=== PATIENT | female | born 1960 | race Caucasian/White ===

== ENCOUNTER → 2016-08-18 | Outpatient (CLI) | payer BC ==
--- NOTE | 2016-08-19 12:36 | MAMMOGRAPHY REPORT ---
BILATERAL DIGITAL SCREENING MAMMOGRAM TOMOSYNTHESIS WITH CAD: 08/18/2016 CLINICAL HISTORY: Routine screening examination. TECHNIQUE: Breast tomosynthesis in addition to standard 2D mammography was performed. Current study was also evaluated with a Computer Aided Detection (CAD) system. COMPARISON: Comparison is made to exams dated: 08/14/2015 mammogram, 08/13/2014 mammogram, 08/09/2013 mammogram, 08/20/2015 mammogram, 07/24/2010 mammogram, and 07/22/2009 mammogram - [facility]ter. BREAST COMPOSITION: The tissue of both breasts is heterogeneously dense, which may obscure small ma sses. FINDINGS: There is stable expected architectural distortion in the 11:00 breast, in the area of prio r benign surgical excisional biopsy. There is a stable dumbbell-shaped metallic biopsy marker in th e upper outer posterior left breast. Scattered punctate microcalcifications most numerous in the [place]um[place] perior right breast are stable comparing to prior exams. There are also numerous bilateral benign c oarse calcifications. No new suspicious mass, architectural distortion or cluster of microcalcifica tions is seen. IMPRESSION: ACR BI-RADS CATEGORY 1: NEGATIVE There is no mammographic evidence of malignancy. A 1 year screening mammogram is recommended. The p atient will receive written notification of the results. Approximately 10% of breast cancers are not detected with mammography. A negative mammographic repor t should not delay biopsy if a clinically suggestive mass is present. Zandra Saldaña M.D. ay/:08/18/2016 17:14:31 [employer] Operator: Vee DALAL(R)(Chaparrita), [facility] letter sent: Normal 1/2 BI-RADS Code: ACR BI-RADS Category 1: Negative
== END | disposition home or self-care (01) ==
LOC: C.MAMM 07:15
PROVIDERS: ATTEND Obstetrics & Gynecology
DX: Z12.31 Encounter for screening mammogram for malignant neoplasm of breast (principal)

== ENCOUNTER → 2017-03-31 | Outpatient (CLI) | payer BC ==
--- NOTE | 2017-03-31 13:38 | MAMMOGRAPHY REPORT ---
UNILATERAL LEFT DIGITAL DIAGNOSTIC MAMMOGRAM TOMOSYNTHESIS WITH CAD AND TARGETED LEFT ULTRASOUND: 04/2017 CLINICAL HISTORY: 56-year-old woman with a history of prior benign left breast stereotactic biopsy an d a surgical excisional biopsy presents with pain in the superior left breast. Family history of bryan ast cancer = mother and sister. TECHNIQUE: Breast tomosynthesis in addition to standard 2D mammography was performed. Current study was also evaluated with a Computer Aided Detection (CAD) system. COMPARISON: Comparison is made to exams dated: 08/18/2016 mammogram, 08/27/2015 mammogram, 08/27/2015 kely reotactic biopsy, 08/20/2015 ultrasound, 08/20/2015 mammogram, and 08/14/2015 mammogram - [facility]. BREAST COMPOSITION: The tissue of the left breast is heterogeneously dense, which may obscure small masses. FINDINGS: A linear scar marker overlies the 12:00 middle one third of the breast, denoting the skin s chedule scar from prior surgical excision. A triangle shaped marker was also placed in the 12:00 mid dle one third of the left breast, denoting the area of pain pointed out by the patient. There is sta ble architectural distortion in the 11:00 middle one third of the left breast, at the site of prior s urgical excision. A stable dumbbell-shaped biopsy marker clip in the upper outer quadrant of the lef t breast from prior benign stereotactic biopsy. There are a few stable benign rim calcifications and groupings of stable punctate microcalcifications. No obvious new mass, unexpected architectural dis tortion, asymmetry or calcifications are seen. Targeted ultrasound was performed in the area of pain pointed out by the patient, in the 11:00 to 12: 00 left breast, 7 cm from the nipple. There is a hypoechoic area of shadowing in the area of pain, w hich probably represents scar tissue although sometimes malignancy can appear similar. Given the str renetta family history of breast cancer and dense breasts, would recommend further evaluation with a silvano st MRI to exclude the possibility of any enhancement in this area. IMPRESSION: ACR BI-RADS CATEGORY 0: INCOMPLETE EVALUATION: NEED ADDITIONAL IMAGING EVALUATION, TARG ETED ULTRASOUND ACR BI-RADS CATEGORY 0: INCOMPLETE EVALUATION: NEED ADDITIONAL IMAGING EVALUATION There is an ill-defined hypoechoic shadowing area in the 11:00 left breast, 7 cm from the nipple on u ltrasound, correlating with the area of pain pointed out by the patient. Although this could represe nt shadowing scar tissue from previous benign surgical excisional biopsy, malignancy can sometimes ap pear similar. Given the personal history of 2 first degree relatives with breast cancer, and dense b reasts, would recommend further evaluation with a contrast-enhanced breast MRI to exclude the possibi lity of any abnormal enhancement or enhancing mass in this area. These results and recommendations were discussed with the patient at the time of the exam. Approximately 10% of breast cancers are not detected with mammography. A negative mammographic report should not delay biopsy if a clinically suggestive mass is present. Zandra Saldaña M.D. ay/:03/31/2017 12:19:46 Agriculture Intern: Vee DALAL(Griselda)(Chaparrita), [facility] letter sent: Addl Imaging 0 BI-RADS Code: ACR BI-RADS Category 0: Incomplete Evaluation: Need Additional Imaging Evaluation Ult rasound BI-RADS: ACR BI-RADS Category 0: Incomplete Evaluation: Need Additional Imaging Evaluation
== END | disposition home or self-care (01) ==
LOC: C.MAMM 10:38
PROVIDERS: ATTEND Physician Assistant
DX: N64.4 Mastodynia (principal); R92.8 Other abnormal and inconclusive findings on diagnostic imaging of breast

== ENCOUNTER → 2017-04-19 | Outpatient (CLI) | payer BC ==
[~2017-04-19] MED LIST: GADAVIST IV PRN
--- NOTE | 2017-04-20 07:25 | MAMMOGRAPHY REPORT ---
BREAST MRI OF BOTH BREASTS : 04/19/2017 CLINICAL HISTORY: 56-year-old woman recently presented with pain in the left breast and was found to have an ill-defined area of shadowing in the left 11:00 left breast thought to represent a remote sonia gical scar. Patient has a strong family history of breast cancer and dense breasts, assess for any a bnormal enhancement or enhancing mass. COMPARISON: Comparison is made to exams dated: 03/31/2017 mammogram, 08/27/2015 mammogram, 08/27/2015 st ereotactic biopsy, 08/20/2015 ultrasound, 08/20/2015 mammogram, and 08/14/2015 mammogram - [facility]. TECHNIQUE: Using a 1.5 Mary magnet and dedicated breast coil, multisequence axial images were obtain ed through the breasts. After uneventful IV administration of 7 mL of Gadavist, dynamic multiphase c ontrast-enhanced axial images, and sagittal postcontrast were obtained. Temporal subtraction axial i mages and 3-D MIP images are provided. Everything was then reviewed on a 3-D workstation, [employer]. FINDINGS: There is minimal background parenchymal enhancement. There is one prominent ovoid enhancin g focus measuring 4 mm in the subareolar left breast (axial page 79/130 and sagittal page 34/128). O ne prominent ovoid enhancing focus is seen in the right breast at approximately 12:30, in the middle one third of the breast measuring 3 mm (axial page 43/1:30 and sagittal page 99/128). Although these foci are most likely within the range of normal background enhancement, given they are the only is c onspicuous focus in each breast, repeat attention at a 6 month follow-up breast MRI is recommended to ensure stability. There is no other suspicious enhancing mass, suspicious non-mass enhancement or s uspicious area of architectural distortion. There is expected architectural distortion in the superi or, middle one third of the left breast approximately 11:00 through 1:00 axes, correlating with the a rchitectural distortion seen mammographically. There is no abnormal enhancement in this area of arch itectural distortion to suggest a suspicious mass. No focal skin thickening or nipple retraction. N o suspicious axillary adenopathy. IMPRESSION: ACR-BI-RADS CATEGORY 3: PROBABLY BENIGN 1. There is no evidence of a suspicious enhancing mass or non-mass enhancement near a prior surgical scar in the superior left breast approximately 11:00 through 1:00 axis. This is compatible with vale ign scar tissue in the area of shadowing seen on ultrasound is also considered benign. 2. A single conspicuous ovoid focus of enhancement in each breast, most likely within the range of n ormal background. However, given the possibility of other foci, a short interval follow-up bilateral breast MRI is recommended to ensure stability in 6 months. The patient will receive written notification of the results. Zandra Saldaña M.D. ay/:04/19/2017 21:21:09 Aircraft Engineer: telecommunication systems designer, [facility] letter sent: Follow Up Recommended 3 BI-RADS Code: ACR-BI-RADS Category 3: Probably Benign
== END | disposition home or self-care (01) ==
LOC: C.MRI 12:43
PROVIDERS: ATTEND Obstetrics & Gynecology
DX: R93.8 Abnormal findings on diagnostic imaging of other specified body structures (principal)

== ENCOUNTER → 2017-08-24 | Outpatient (CLI) | payer BC ==
--- NOTE | 2017-08-26 08:00 | MAMMOGRAPHY REPORT ---
BILATERAL DIGITAL SCREENING MAMMOGRAM TOMOSYNTHESIS WITH CAD: 08/24/2017 CLINICAL HISTORY: Routine screening. Patient has no complaints. TECHNIQUE: Breast tomosynthesis in addition to standard 2D mammography was performed. Current study was also evaluated with a Computer Aided Detection (CAD) system. COMPARISON: Comparison is made to exams dated: 04/19/2017 breast MRI, 03/31/2017 ultrasound, 017 mammogram, 08/18/2016 mammogram, 08/27/2015 mammogram, and 08/27/2015 stereotactic biopsy - [facility]. BREAST COMPOSITION: The tissue of both breasts is heterogeneously dense, which may obscure small mas ses. FINDINGS: There possible faint grouped punctate microcalcifications in the 12:00 and retroareolar ri ght breast, for which additional spot magnification views are recommended. There is stable expected architectural distortion in the 12:00 left breast, denoting an area of prior surgery. A linear scar marker overlies the left upper outer quadrant. There are numerous benign ri m calcifications bilaterally, and a stable metallic biopsy marker clip in the upper outer posterior l eft breast. No other suspicious mass, architectural distortion or cluster of microcalcifications is seen. IMPRESSION: ACR BI-RADS CATEGORY 0: INCOMPLETE EVALUATION: NEED ADDITIONAL IMAGING EVALUATION The possible faint grouped microcalcifications 12:00 and retroareolar in the right breast need additi onal evaluation. The patient will be called to schedule an appointment. Approximately 10% of breast cancers are not detected with mammography. A negative mammographic report should not delay biopsy if a clinically suggestive mass is present. Zandra Saldaña M.D. ay/:08/24/2017 17:32:38 [employer] Repairer: Triny Jeffers, [facility] letter sent: Addl Imaging 0 BI-RADS Code: ACR BI-RADS Category 0: Incomplete Evaluation: Need Additional Imaging Evaluation
== END | disposition home or self-care (01) ==
LOC: C.MAMM 07:12
PROVIDERS: ATTEND Obstetrics & Gynecology
DX: Z12.31 Encounter for screening mammogram for malignant neoplasm of breast (principal)

== ENCOUNTER → 2017-09-07 | Outpatient (CLI) | payer BC ==
--- NOTE | 2017-09-07 14:56 | MAMMOGRAPHY REPORT ---
UNILATERAL RIGHT DIGITAL DIAGNOSTIC MAMMOGRAM: 09/07/2017 CLINICAL HISTORY: Callback from screening mammogram for right breast calcifications. TECHNIQUE: Spot magnification right CC and ML views were obtained. COMPARISON: Comparison is made to exams dated: 08/24/2017 mammogram, 08/18/2016 mammogram, 08/14/2015 ma mmogram, 08/13/2014 mammogram, and 08/09/2013 mammogram - [facility]. BREAST COMPOSITION: The tissue of the right breast is heterogeneously dense, which may obscure small masses. FINDINGS: Spot magnification views demonstrate regionally distributed faint punctate calcifications t hroughout the right superior breast, predominantly in the 12:00 breast. Compared to prior exams, the calcifications do not appear significantly changed dating back to the July 2015 exam although ar e not clearly stable compared to exams prior to 2015 which could be due to technical differences. Th e calcifications are probably benign given the regional distribution and long-term stability. No foc al suspicious cluster of calcifications is noted. IMPRESSION: ACR-BI-RADS CATEGORY 3: PROBABLY BENIGN Regional benign-appearing calcifications in the right 12:00 breast are probably benign. Recommend fo llow-up diagnostic tomosynthesis mammograms of the right breast in 6 months to confirm stability on s pot magnification views. The patient has been verbally notified of the results. Approximately 10% of breast cancers are not detected with mammography. A negative mammographic report should not delay biopsy if a clinically suggestive mass is present. Esperanza Felipe M.D. ah/:09/07/2017 13:24:26 Comb Machine Operator: Maria Del Rosario DALAL(Griselda)(Chaparrita), [facility] letter sent: Follow Up Recommended 3 BI-RADS Code: ACR-BI-RADS Category 3: Probably Benign
== END | disposition home or self-care (01) ==
LOC: C.MAMM 12:47
PROVIDERS: ATTEND Obstetrics & Gynecology
DX: R92.1 Mammographic calcification found on diagnostic imaging of breast (principal)

== ENCOUNTER → 2017-10-28 | Outpatient (CLI) | payer BC ==
--- NOTE | 2017-10-29 07:49 | MAMMOGRAPHY REPORT ---
BREAST MRI OF BOTH BREASTS : 10/28/2017 CLINICAL HISTORY: Six-month follow-up of bilateral enhancing foci seen on prior breast MRI. Strong f amily history of breast cancer. COMPARISON: Comparison is made to exams dated: 09/07/2017 mammogram, 08/24/2017 mammogram, 04/19/2017 b reast MRI, 08/18/2016 mammogram, 08/14/2015 mammogram, and 08/13/2014 mammogram - [facility]. Technique: The patient was placed prone in a dedicated breast imaging coil. Precontrast axial T1-alin ghted, axial T2-weighted fat saturation, and axial T1-weighted fat saturation images were obtained. After the administration of 7 mL of Gadavist IV contrast, sequential T1-weighted fat saturation image s were obtained. Subtraction images were obtained of the dynamic contrast enhanced sequences, and 3- D reformations were performed. The Trov software was used for kinetic analysis. Findings: There is minimal background parenchymal enhancement involving bilateral breasts. Again noted is a 3 mm focus of enhancement in the left subareolar breast which demonstrates a benign type persistent kin etic pattern (series [id number] image 74). Also again noted is a 3 mm focus of enhancement in the right 1 230 breast middle depth which demonstrates no abnormal kinetics (series [id number] image 42). The 2 foci are stable compared to the March 2017 exam and are considered benign given the morphology and stabi lity. There are no new or suspicious enhancing masses or areas of abnormal non-mass enhancement with in either breast. Susceptibility artifact is seen within the left upper outer quadrant from a biopsy marker clip. There is no evidence of axillary adenopathy. The chest wall structures are negative. Extramammary s oft tissues are unremarkable. IMPRESSION: ACR BI-RADS CATEGORY 2: BENIGN No MRI evidence of malignancy in either breast. Two small bilateral enhancing foci are stable compare d to the prior March 2017 MRI exam, and are considered benign given the morphology and stability. Note that the patient is due for follow-up diagnostic mammograms of the right breast February 2018. Esperanza Felipe M.D. /:10/28/2017 17:21:53 Washer Off: informatics coordinator, [facility] letter sent: Normal 1/2 BI-RADS Code: ACR BI-RADS Category 2: Benign
== END | disposition home or self-care (01) ==
LOC: C.MRI 12:53
PROVIDERS: ATTEND Obstetrics & Gynecology
DX: R93.8 Abnormal findings on diagnostic imaging of other specified body structures (principal)

== ENCOUNTER → 2018-01-27 | Outpatient (CLI) | payer BC | END | disposition home or self-care (01) | LOC: C.LABSPEC 13:41 | PROVIDERS: ATTEND Obstetrics & Gynecology | DX: Z01.419 Encounter for gynecological examination (general) (routine) without abnormal findings (principal) ==